=== PATIENT | male | born 1955 | race Caucasian/White ===

== ENCOUNTER 2019-12-15 06:43 | Day surgery (SDC) | payer MEDICARE ==
[~2019-12-15] VITALS: Ht 170.2 cm; Wt 91.3 kg
[~2019-12-15 06:43] MED LIST: ACET120S PR; BACL10 PO; HYDMOR2 PO; IBUP400 PO; NAPR500 PO; OXYC15ER PO; PRED1 PO; VITAMIN D350 MCG PO
--- NOTE | 2019-12-15 07:20 | NUR ---
12/15/19 0720 AD POLANCO FIRST IV BAD IN WRIST OF R HAND, BLEW. SECOND IV GOOD IN AC
== END 2019-12-15 09:07 | disposition home or self-care (01) ==
LOC: ORSCSDS 06:43
PROVIDERS: Surgery
PROC: 0DBP8ZX Excision of Rectum, Via Natural or Artificial Opening Endoscopic, Diagnostic (ICD-10-PCS; principal; 2019-12-15 08:00)
PROC: 0DBM8ZX Excision of Descending Colon, Via Natural or Artificial Opening Endoscopic, Diagnostic (ICD-10-PCS; principal; 2019-12-15 08:00)
DX: Z12.11 Encounter for screening for malignant neoplasm of colon (principal); Z86.010 Personal history of colon polyps; Z80.0 Family history of malignant neoplasm of digestive organs; D12.4 Benign neoplasm of descending colon; D12.8 Benign neoplasm of rectum; K57.30 Diverticulosis of large intestine without perforation or abscess without bleeding
CPT/HCPCS: 88305; J2405; J2704; J7120

== ENCOUNTER 2025-01-17 06:33 | Day surgery (SDC) | payer MEDICARE ==
[~2025-01-17] VITALS: Ht 200.7 cm; Wt 90.0 kg
[2025-01-17] MEDS ORDERED: FLONASE ALLERG9.9 M2 (06:52)
[2025-01-17] MEDS ORDERED: [UNRECOGNIZED DRUG - OTHER] (06:53)
[2025-01-17] MEDS ORDERED: IBUP200 (06:53)
[2025-01-17 09:12] VITALS: BP 124/70
== END 2025-01-17 09:00 | disposition home or self-care (01) ==
LOC: ORSCSDS 06:33
PROVIDERS: Surgery
PROC: 0DJD8ZZ Inspection of Lower Intestinal Tract, Via Natural or Artificial Opening Endoscopic (ICD-10-PCS; principal; 2025-01-17 08:00)
DX: Z12.11 Encounter for screening for malignant neoplasm of colon (principal); Z86.0101 Personal history of adenomatous and serrated colon polyps; Z80.0 Family history of malignant neoplasm of digestive organs; D12.3 Benign neoplasm of transverse colon; K57.30 Diverticulosis of large intestine without perforation or abscess without bleeding; Z79.899 Other long term (current) drug therapy
CPT/HCPCS: 88305; J2704; J7120